=== PATIENT | female | born 1955 | race African-American/Black ===

== ENCOUNTER 2016-12-08 19:30 | Emergency (ER) | payer OTHER, MEDICAID ==
[2016-12-08] MEDS ORDERED: ONDANSETRON 4 MG VIAL ONE (20:46)
[2016-12-08] MEDS ORDERED: MORPHINE 2 MG/ML SYR ONE (20:46)
== END 2016-12-08 21:09 | disposition home or self-care (01) ==
LOC: ER 19:30
DX: S13.9XXA Sprain of joints and ligaments of unspecified parts of neck, initial encounter (principal); S23.3XXA Sprain of ligaments of thoracic spine, initial encounter; S20.219A Contusion of unspecified front wall of thorax, initial encounter; V49.49XA Driver injured in collision with other motor vehicles in traffic accident, initial encounter; Y92.410 Unspecified street and highway as the place of occurrence of the external cause; F17.210 Nicotine dependence, cigarettes, uncomplicated
CPT/HCPCS: 71020; 72050; 72072; 96374; 96375